=== PATIENT | female | born 1930 | race Caucasian/White ===

== ENCOUNTER → 2016-11-22 | Outpatient (CLI) | payer MEDICARE, OTHER ==
[2016-11-22 08:11] LABS: ALT 31 U/L (9-52); AST 34 U/L (14-36); Cholesterol 184 mg/dL (<200); HDL Cholesterol 62 mg/dL (40-60); Triglycerides 299 mg/dL (<150)
== END ==
LOC: LABWHC1 07:28
PROVIDERS: ATTEND Internal Medicine Cardiovascular Disease
DX: E78.5 Hyperlipidemia, unspecified (principal)
CPT/HCPCS: 36415; 80061; 84450; 84460

== ENCOUNTER → 2017-02-14 | Outpatient (CLI) | payer MEDICARE ==
--- NOTE | 2017-02-14 12:55 | CT ---
EXAMINATION TYPE: CT brain wo con DATE OF EXAM: 02/14/2017 COMPARISON: 08/18/2014 INDICATION: Vertigo DLP: 1017.9 mGycm, Automated exposure control for dose reduction was used. CONTRAST: None CT of the brain is performed utilizing 3 mm thick sections through the posterior fossa and 3 mm thick sections through the remaining calvarium. Study is performed within 24 hours of arrival to the hosp ital. No abnormal hyperdensity is present to suggest an acute intracranial hemorrhage. No mass lesion is evident. No acute infarcts are evident. There is periventricular white matter hypodensity, most likely on the basis of chronic white matter ischemic changes. Ventricles and sulci are mildly prominent for the patient age. There is some mucosal thickening or retention cyst within the left maxillary sinus. A partial septati on may be within the right maxillary sinus. Mucosal thickening is within the mid right ethmoid air ce ll. Main paranasal sinuses and mastoid air cells are clear. IMPRESSIONS: 1. Atrophy with periventricular white matter ischemic type changes.
== END | disposition home or self-care (01) ==
LOC: RADCTMAIN 12:15
PROVIDERS: ATTEND Family Medicine
DX: G31.9 Degenerative disease of nervous system, unspecified (principal); I67.82 Cerebral ischemia; R90.82 White matter disease, unspecified
CPT/HCPCS: 70450

== ENCOUNTER 2017-08-24 04:24 | Emergency (ER) | payer MEDICARE ==
[2017-08-24] MEDS ORDERED: ONDANSETRON 4 MG/2 ML VIAL IVP STA (04:45)
[2017-08-24] MEDS ORDERED: SODIUM CHLORIDE 0.9% 1,000 ML IV STA (04:45)
[2017-08-24] MEDS ORDERED: diphenhydrAMINE 50 MG/ML 1 ML VIAL IVP STA (04:45)
[2017-08-24] MEDS ORDERED: DIAZEPAM 5 MG/ML 2 ML INJ IVP STA (04:45)
[2017-08-24 04:58] LABS: Basophils % (A) 0 %; CH 30.2; CHCM 33.9; Eosinophils # (A) 0.2 k/uL (0-0.7); Eosinophils % (A) 2 %; HCT 42.3 % (34.0-46.0); HDW 2.46; HGB 14.3 gm/dL (11.4-16.0); Luc # (Auto) 0.08; Luc % (Auto) 1; Lymphocytes # (A) 1.3 k/uL (1.0-4.8); Lymphocytes % (A) 19 %; MCH 30.4 pg (25.0-35.0); MCHC 33.9 g/dL (31.0-37.0); MCV 89.7 fL (80.0-100.0); Mean Platelet Volume 8.2; Monocytes # (A) 0.3 k/uL (0-1.0); Monocytes % (A) 4 %; Neutrophils # (A) 4.9 k/uL (1.3-7.7); Neutrophils % (A) 73 %; RBC 4.71 m/uL (3.80-5.40); RDW 14.2 % (11.5-15.5); WBC 6.8 k/uL (3.8-10.6)
[2017-08-24 05:05] LABS: Glucose,Whole Blood 129 mg/dL (75-99)
[2017-08-24 05:06] LABS: Partial Thromboplastin Time 22.5 sec (22.0-30.0); Prothrombin Time 10.1 sec (9.0-12.0)
--- NOTE | 2017-08-24 05:07 | ED ---
Dizziness HPI - General Chief Complaint: Dizziness Stated Complaint: dizziness Time Seen by Provider: 08/24/17 04:38 Source: patient, family Mode of arrival: wheelchair Limitations: no limitations - History of Present Illness Initial Comments: 86 female the ER today for evaluation of what she describes as vertigo. Patient has history of vertigo and states that it feels exact same. The room was spinning around she is very nauseous and feels very weak. Patient denies chest pain or shortness of breath no headache. Patient has not tried to ambulate, the patient states the precision that she isn't makes it worse and currently she is without the dizziness, patient scrubbed the dizziness as the room is spinning MD Complaint: dizziness, other (vertigo) -: days(s) Timing: awoke with symptoms, now resolved Description: "room spinning", off-balance, difficulty walking History of Same: Yes History of Trauma: No Severity: mild Improves With: remaining still Worsens With: movement, position Associated Symptoms: other (nausea and vomiting) - Related Data Home Medications Medication Instructions Recorded Confirmed Aspirin 81 mg PO DAILY 08/18/14 08/18/14 Atorvastatin [Lipitor] 20 mg PO HS 08/18/14 08/18/14 Esomeprazole Magnesium [NexIUM] 40 mg PO DAILY 08/18/14 08/18/14 Hydrochlorothiazide [Hydrodiuril] 25 mg PO DAILY 08/18/14 08/18/14 Oxybutynin Chloride [Ditropan] 5 mg PO DAILY 08/18/14 08/18/14 Allergies Allergy/AdvReac Type Severity Reaction Status Date / Time No Known Allergies Allergy Verified 08/24/17 04:32 Review of Systems ROS Statement: Those systems with pertinent positive or pertinent negative responses have been documented in the HPI. ROS Other: All systems not noted in ROS Statement are negative. Past Medical History Past Medical History: Heart Failure, Hyperlipidemia, Hypertension, Syncope Additional Past Medical History / Comment(s): overactive bladder History of Any Multi-Drug Resistant Organisms: None Reported Past Surgical History: Appendectomy, Bowel Resection, Section, Orthopedic Surgery, Tonsillectomy Past Psychological History: Depression Smoking Status: Never smoker Past Alcohol Use History: Rare Past Drug Use History: None Reported General Exam Limitations: no limitations General appearance: alert, in no apparent distress Head exam: Present: atraumatic, normocephalic, normal inspection Eye exam: Present: normal appearance, PERRL, EOMI. Absent: scleral icterus, conjunctival injection, nystagmus, periorbital swelling ENT exam: Present: normal exam, mucous membranes moist Neck exam: Present: normal inspection. Absent: tenderness, meningismus, lymphadenopathy Respiratory exam: Present: normal lung sounds bilaterally. Absent: respiratory distress, wheezes, rales, rhonchi, stridor Cardiovascular Exam: Present: regular rate, normal rhythm, normal heart sounds. Absent: systolic murmur, diastolic murmur, rubs, gallop, clicks GI/Abdominal exam: Present: soft, normal bowel sounds. Absent: distended, tenderness, guarding, rebound, rigid Extremities exam: Present: normal inspection, full ROM, normal capillary refill. Absent: tenderness, pedal edema, joint swelling, calf tenderness Back exam: Present: normal inspection Neurological exam: Present: alert, oriented X3, CN II-XII intact Psychiatric exam: Present: normal affect, normal mood Skin exam: Present: warm, dry, intact, normal color. Absent: rash Course Vital Signs 08/24/17 04:29 Temperature 97.8 F Pulse Rate 78 Respiratory 18 Rate Blood Pressure 149/77 O2 Sat by Pulse 100 Oximetry - Reevaluation(s) Reevaluation #1: 08/24/17 05:06 Patient currently feels improved, no active vomiting. Reevaluation #2: 08/24/17 05:06 Patient is able to ambulate without ataxia EKG Findings - EKG Comments: EKG Findings:: EKG shows no sinus rhythm rate of 60, AL 166, QRS 80, QTC 457 Medical Decision Making - Medical Decision Making 86 female DEL with vertigo, vertiginous symptoms. Vitals are resolved at this time. CT labwork is normal, EKG negative patient can be discharged - Lab Data Result diagrams: 08/24/17 04:50 Lab Results 08/24/17 Range/Units 04:50 WBC 6.8 (3.8-10.6) k/uL RBC 4.71 (3.80-5.40) m/uL Hgb 14.3 (11.4-16.0) gm/dL Hct 42.3 (34.0-46.0) % MCV 89.7 (80.0-100.0) fL MCH 30.4 (25.0-35.0) pg MCHC 33.9 (31.0-37.0) g/dL RDW 14.2 (11.5-15.5) % Plt Count 218 (150-450) k/uL Neutrophils % 73 % Lymphocytes % 19 % Monocytes % 4 % Eosinophils % 2 % Basophils % 0 % Neutrophils # 4.9 (1.3-7.7) k/uL Lymphocytes # 1.3 (1.0-4.8) k/uL Monocytes # 0.3 (0-1.0) k/uL Eosinophils # 0.2 (0-0.7) k/uL Basophils # 0.0 (0-0.2) k/uL - Radiology Data Radiology results: report reviewed (CT brain negative), image reviewed Disposition Clinical Impression: Benign paroxysmal positional vertigo Disposition: HOME SELF-CARE Condition: Good Instructions: Vertigo (ED) Referrals: Jose R William DO [Primary Care Provider] - 1-2 days
[2017-08-24 05:08] LABS: ALT 36 U/L (9-52); AST 30 U/L (14-36); Alkaline Phosphatase 99 U/L (38-126); Anion Gap 12 mmol/L; Blood Urea Nitrogen 15 mg/dL (7-17); Calcium 9.8 mg/dL (8.4-10.2); Carbon Dioxide 24 mmol/L (22-30); Chloride 106 mmol/L (98-107); Glucose 135 mg/dL (74-99); Magnesium 1.8 mg/dL (1.6-2.3); Non-African American GFR(MDRD) 53 (>60 ml/min/1.73 sqM); Phosphorus 1.9 mg/dL (2.5-4.5); Potassium 3.8 mmol/L (3.5-5.1); Sodium 142 mmol/L (137-145); Total Bilirubin 0.4 mg/dL (0.2-1.3); Total Protein 7.1 g/dL (6.3-8.2)
[2017-08-24 05:58] LABS: Creatine Kinase 50 U/L (30-135)
[2017-08-24 06:11] LABS: Creatine Kinase MB 0.9 ng/mL (0.0-2.4); Troponin I <0.012 ng/mL (0.000-0.034)
[2017-08-24 06:35] VITALS: BP 143/63; PULSE 65; RESP 16; TEMP 97.9
--- NOTE | 2017-08-24 06:56 | CT ---
EXAM: CT Head Without Intravenous Contrast CLINICAL HISTORY: Reason: Pain TECHNIQUE: Axial computed tomography images of the head/brain without intravenous contrast. Coronal and sagittal reformats were obtained. CTDI is 57.40 mGy and DLP is 961 mGy-cm. This CT exam was performed using one or more of the following dose reduction techniques: automated exposure control, adjustment of the mA and/or kV according to patient size, and/or use of iterative reconstruction technique. COMPARISON: CT head, 02/14/17 FINDINGS: Brain: No intracranial hemorrhage, mass effect, or midline shift. Sulcal and ventricular prominence is consistent with age-related parenchymal volume loss. Periventricular white matter hypodensities, likely chronic small vessel disease. Ventricles: Unremarkable. No ventriculomegaly. Bones/joints: No acute fracture. Sinuses: Maxillary sinus mucosal thickening, left greater than right. Left basilar sinus mucous retention cyst versus polyp. No air-fluid levels. Mastoid air cells: Unremarkable as visualized. No mastoid effusion. IMPRESSION: 1. No acute intracranial abnormality. 2. Global volume loss and white matter changes most compatible with chronic small vessel disease. 3. Mild maxillary sinus disease.
[2017-08-24 07:15] LABS: Appearance,Urine Clear (Clear); Bilirubin,Urine Negative (Negative); Glucose,Urine (UA) Negative (Negative); Ketones,Urine Negative (Negative); Leukocyte Esterase,Urine Negative (Negative); Nitrite,Urine Negative (Negative); PH, Urine 7.5 (5.0-8.0); Protein,Urine Negative (Negative); Specific Gravity,Urine 1.006 (1.001-1.035); UA Billing (MACRO vs. MICRO) CHEM; Urobilinogen,Urine <2.0 mg/dL (<2.0)
== END 2017-08-24 07:15 | disposition home or self-care (01) ==
LOC: EC 04:24
DX: H81.10 Benign paroxysmal vertigo, unspecified ear (principal); E78.5 Hyperlipidemia, unspecified; I11.0 Hypertensive heart disease with heart failure; I50.9 Heart failure, unspecified; N32.81 Overactive bladder; Z79.82 Long term (current) use of aspirin; Z79.899 Other long term (current) drug therapy
CPT/HCPCS: 36415; 70450; 80053; 81003; 82550; 82553; 83735; 84100; 84484; 85025; 85610; 85730; 87086; 93005; 96361; 96374; 96375; 99284

== ENCOUNTER → 2017-12-31 | Outpatient (CLI) | payer MEDICARE ==
[2017-12-31 09:18] LABS: ALT 32 U/L (9-52); AST 32 U/L (14-36); Cholesterol 199 mg/dL (<200); HDL Cholesterol 66 mg/dL (40-60); LDL Cholesterol,Calculated 82 mg/dL (0-99); Triglycerides 255 mg/dL (<150)
== END | disposition home or self-care (01) ==
LOC: LABWHC1 08:31
PROVIDERS: ATTEND Internal Medicine Cardiovascular Disease
DX: E78.5 Hyperlipidemia, unspecified (principal)
CPT/HCPCS: 36415; 80061; 84450; 84460

== ENCOUNTER → 2018-06-17 | Outpatient (CLI) | payer MEDICARE ==
--- NOTE | 2018-06-17 18:05 | NM ---
EXAMINATION TYPE: NM bone scan whole body DATE OF EXAM: 06/17/2018 COMPARISON: Correlation CT brain 08/24/2017 HISTORY: 87-year-old female with abnormal bone marrow findings Technique: Delayed whole-body scanning was performed following the injection of 24.8 mCi Tc 99m MDP. Images acquired 3 hours post injection. FINDINGS: There are multiple small foci of increased tracer activity within the calvarium. Degenerative tracer activity is noted at both shoulders and sternoclavicular joints. Intense degenerative tracer activity at the base of the thumbs and also within the knees and both hindfoot/midfoot regions. 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 Intense abnormal increased activ ity is present along the sides of concavity such as along the right mid lumbar spine, left lumbosacra l junction, and left lower thoracic spine. Areas of increased uptake relating to costal chondral calc ifications along the lower hemithorax. IMPRESSION: 1. Extensive degenerative tracer activity particularly associated with a degenerated levoconvex scoli osis. 2. Small foci of increased activity within the calvarium may be normal variation in this elderly fema le. The possibility of metastatic disease, however, is difficult to entirely exclude at this time. Co nsider follow-up brain CT to assess for any interval change from the patient's 08/24/2017 CT.
== END ==
LOC: RADNMMAIN 10:19
PROVIDERS: ATTEND Family Medicine
DX: R93.7 Abnormal findings on diagnostic imaging of other parts of musculoskeletal system (principal)
CPT/HCPCS: 78306; A9503

== ENCOUNTER → 2018-10-22 | Outpatient (CLI) | payer MEDICARE ==
--- NOTE | 2018-10-22 09:10 | XR ---
EXAMINATION TYPE: XR Hip Bilateral Complete DATE OF EXAM: 10/22/2018 CLINICAL HISTORY: Right hip pain and left hip pain. TECHNIQUE: AP and frogleg views of the bilateral hips were obtained. COMPARISON: None. FINDINGS: There is no acute fracture or dislocation of either hip. Mild femoral acetabular arthropath y is seen as acetabular roof sclerosis and small marginal osteophytes. No suspicious osseous lesion. Osseous mineralization is within normal limits. IMPRESSION: There is no acute fracture or dislocation in either hip. Mild femoral acetabular arthrop athy bilaterally.
== END ==
LOC: RADXRMAIN 08:44
PROVIDERS: ATTEND Family Medicine
DX: M16.0 Bilateral primary osteoarthritis of hip (principal)
CPT/HCPCS: 73521

== ENCOUNTER 2021-06-18 19:33 | Emergency (ER) | payer MEDICARE ==
[2021-06-18 19:46] VITALS: RESP 18; TEMP 97.3
--- NOTE | 2021-06-18 19:50 | ED ---
General Adult HPI - General Chief complaint: Weakness Stated complaint: Weakness Time Seen by Provider: 06/18/21 19:46 Source: patient, family, EMS Mode of arrival: EMS Limitations: no limitations - History of Present Illness Initial comments: Patient presents to the ED by ambulance for evaluation with her daughter at bedside. Patient states that she has been constipated for the past couple of days, so she decided to take some laxatives yesterday and today. Patient states that she was able to have a bowel movement earlier today. Patient states that about 4 hours ago, she developed shakiness. Patient's daughter states that the patient called her, and when she arrived, the patient was very "worked up". Patient and daughter both deny syncope or LOC. Patient states that she is feeling better now. Patient admits to feeling generally weak for the past few hours as well. Patient denies having any pain, trauma/injury/fall, fever, headache, focal numbness/weakness/neuro deficit, chest pain or pressure, dyspnea, cough or cold symptoms, palpitations, abdominal pain, nausea or vomiting, diarrhea, bloody or melanotic stool, dysuria or urinary symptoms, or any other symptoms or complaints. Patient states that she is fully vaccinated for Covid. - Related Data Home Medications Medication Instructions Recorded Confirmed Aspirin 81 mg PO DAILY 08/18/14 08/24/17 Atorvastatin [Lipitor] 20 mg PO HS 08/18/14 08/24/17 Metoprolol Tartrate 25 mg PO DAILY 08/24/17 08/24/17 Multivitamins, Thera [Multivitamin 1 tab PO DAILY 08/24/17 08/24/17 (formulary)] Vit A/Vit C/Vit E/Zinc/Copper 1 cap PO DAILY 08/24/17 08/24/17 [ICAPS SOFTGEL] amLODIPine [Norvasc] 10 mg PO DAILY 08/24/17 08/24/17 Previous Rx's Medication Instructions Recorded Meclizine [Antivert] 25 mg PO TID #15 tab 08/24/17 Ondansetron Odt [Zofran ODT] 4 mg PO Q8HR PRN #30 tab 08/24/17 Allergies Allergy/AdvReac Type Severity Reaction Status Date / Time No Known Allergies Allergy Verified 08/24/17 07:08 Review of Systems ROS Statement: Those systems with pertinent positive or pertinent negative responses have been documented in the HPI. ROS Other: All systems not noted in ROS Statement are negative. Past Medical History Past Medical History: Heart Failure, Hyperlipidemia, Hypertension, Syncope Additional Past Medical History / Comment(s): overactive bladder History of Any Multi-Drug Resistant Organisms: None Reported Past Surgical History: Appendectomy, Bowel Resection, Section, Orthopedic Surgery, Tonsillectomy Past Psychological History: Depression Smoking Status: Former smoker Past Alcohol Use History: Rare Past Drug Use History: None Reported General Exam Limitations: no limitations General appearance: alert, in no apparent distress Head exam: Present: atraumatic, normocephalic Eye exam: Present: normal appearance, PERRL, EOMI ENT exam: Present: mucous membranes moist Neck exam: Present: other (Trachea is in midline) Respiratory exam: Present: normal lung sounds bilaterally. Absent: respiratory distress, wheezes, rales, rhonchi, stridor Cardiovascular Exam: Present: regular rate, normal rhythm, normal heart sounds, other (Normal radial pulses bilaterally) GI/Abdominal exam: Present: soft, hyperactive bowel sounds. Absent: distended, tenderness, guarding Extremities exam: Absent: tenderness, pedal edema, calf tenderness Neurological exam: Present: alert, oriented X3, CN II-XII intact. Absent: motor sensory deficit Psychiatric exam: Present: normal affect, normal mood Skin exam: Present: warm, dry, intact, normal color Course Vital Signs 06/18/21 06/18/21 19:35 19:46 Temperature 97.3 F L Pulse Rate 102 H 102 H Respiratory 18 18 Rate Blood Pressure 152/127 160/76 O2 Sat by Pulse 98 98 Oximetry - Reevaluation(s) Reevaluation #1: 06/18/21 21:10 Patient states that she is no longer weak or shaky, and she states that she feels much better and back to normal now. Patient denies development of any new symptoms while in the ED. Patient remains alert and breathing comfortably with a normal room air oxygen saturation. Patient feels comfortable and wishes to go home at this time. I do not see any indication for required hospital admission at this time. Will discharge patient home with her daughter at this time. Patient was counseled about weakness/shakiness, and she was clearly explained return and follow-up instructions. Patient was instructed to have a low thres hold for return to the emergency department should her symptoms return or worsen. Patient was also instructed to follow up closely with her primary care provider. Patient feels comfortable with this plan. EKG Findings - EKG Comments: EKG Findings:: Normal sinus rhythm, ventricular rate of 98 bpm, no ectopy, normal [place] and QRS intervals, normal QT interval, normal axis, no ST or T-wave abnormality Medical Decision Making - Medical Decision Making Patient's EKG, chest x-ray and labs are all fairly unremarkable. Patient is afebrile and normotensive. I do not suspect an infectious etiology. I do not suspect an emergent medical condition at this time. Will discharge patient home with her daughter at this time with instructions for close outpatient follow-up with her primary care provider. - Lab Data Result diagrams: 06/18/21 20:18 06/18/21 20:18 Lab Results 06/18/21 06/18/21 06/18/21 Range/Units 20:18 20:18 20:18 WBC 11.5 H (3.8-10.6) k/uL RBC 4.25 (3.80-5.40) m/uL Hgb 13.7 (11.4-16.0) gm/dL Hct 39.3 (34.0-46.0) % MCV 92.4 (80.0-100.0) fL MCH 32.1 (25.0-35.0) pg MCHC 34.8 (31.0-37.0) g/dL RDW 12.5 (11.5-15.5) % Plt Count 187 (150-450) k/uL MPV 8.5 Neutrophils % 84 % Lymphocytes % 10 % Monocytes % 4 % Eosinophils % 0 % Basophils % 0 % Neutrophils # 9.7 H (1.3-7.7) k/uL Lymphocytes # 1.1 (1.0-4.8) k/uL Monocytes # 0.5 (0-1.0) k/uL Eosinophils # 0.1 (0-0.7) k/uL Basophils # 0.0 (0-0.2) k/uL PT 13.7 H (9.0-12.0) sec INR 1.3 H (<1.2) APTT 27.1 (22.0-30.0) sec Sodium (137-145) mmol/L Potassium (3.5-5.1) mmol/L Chloride (98-107) mmol/L Carbon Dioxide (22-30) mmol/L Anion Gap mmol/L BUN (7-17) mg/dL Creatinine (0.52-1.04) mg/dL Est GFR (CKD-EPI)AfAm (>60 ml/min/1.73 sqM) Est GFR (CKD-EPI)NonAf (>60 ml/min/1.73 sqM) Glucose (74-99) mg/dL Calcium (8.4-10.2) mg/dL Magnesium (1.6-2.3) mg/dL Total Bilirubin (0.2-1.3) mg/dL AST (14-36) U/L ALT (4-34) U/L Alkaline Phosphatase (38-126) U/L Troponin I (0.000-0.034) ng/mL Total Protein (6.3-8.2) g/dL Albumin (3.5-5.0) g/dL Urine Color Colorless Urine Appearance Clear (Clear) Urine pH 7.5 (5.0-8.0) Ur Specific [place] 1.005 (1.001-1.035) Urine Protein Negative (Negative) Urine Glucose (UA) Negative (Negative) Urine Ketones Trace H (Negative) Urine Blood Negative (Negative) Urine Nitrite Negative (Negative) Urine Bilirubin Negative (Negative) Urine Urobilinogen <2.0 (<2.0) mg/dL Ur Leukocyte Esterase Negative (Negative) 06/18/21 06/18/21 Range/Units 20:18 20:18 WBC (3.8-10.6) k/uL RBC (3.80-5.40) m/uL Hgb (11.4-16.0) gm/dL Hct (34.0-46.0) % MCV (80.0-100.0) fL MCH (25.0-35.0) pg MCHC (31.0-37.0) g/dL RDW (11.5-15.5) % Plt Count (150-450) k/uL MPV Neutrophils % % Lymphocytes % % Monocytes % % Eosinophils % % Basophils % % Neutrophils # (1.3-7.7) k/uL Lymphocytes # (1.0-4.8) k/uL Monocytes # (0-1.0) k/uL Eosinophils # (0-0.7) k/uL Basophils # (0-0.2) k/uL PT (9.0-12.0) sec INR (<1.2) APTT (22.0-30.0) sec Sodium 132 L (137-145) mmol/L Potassium 3.9 (3.5-5.1) mmol/L Chloride 102 (98-107) mmol/L Carbon Dioxide 20 L (22-30) mmol/L Anion Gap 10 mmol/L BUN 20 H (7-17) mg/dL Creatinine 1.07 H (0.52-1.04) mg/dL Est GFR (CKD-EPI)AfAm 54 (>60 ml/min/1.73 sqM) Est GFR (CKD-EPI)NonAf 47 (>60 ml/min/1.73 sqM) Glucose 107 H (74-99) mg/dL Calcium 9.1 (8.4-10.2) mg/dL Magnesium 1.5 L (1.6-2.3) mg/dL Total Bilirubin 0.5 (0.2-1.3) mg/dL AST 36 (14-36) U/L ALT 21 (4-34) U/L Alkaline Phosphatase 104 (38-126) U/L Troponin I <0.012 (0.000-0.034) ng/mL Total Protein 6.7 (6.3-8.2) g/dL Albumin 3.9 (3.5-5.0) g/dL Urine Color Urine Appearance (Clear) Urine pH (5.0-8.0) Ur Specific [place] (1.001-1.035) Urine Protein (Negative) Urine Glucose (UA) (Negative) Urine Ketones (Negative) Urine Blood (Negative) Urine Nitrite (Negative) Urine Bilirubin (Negative) Urine Urobilinogen (<2.0) mg/dL Ur Leukocyte Esterase (Negative) - Radiology Data Radiology results: report reviewed (Chest x-ray: Large hiatal hernia. No pulmonary consolidation or heart failure.) Disposition Clinical Impression: Shakiness, Generalized weakness Disposition: HOME SELF-CARE Condition: Stable Instructions (If sedation given, give patient instructions): Weakness (ED) Additional Instructions: Return to the ER immediately should you develop increased weakness, a fever, any significant pain, feeling dizzy or faint, shortness of breath, vomiting, or new or worsening symptoms. Follow up closely with your primary care provider. Is patient prescribed a controlled substance at d/c from ED?: No Referrals: Jose R William DO [Primary Care Provider] - 1-2 days Time of Disposition: 21:15
[2021-06-18 20:26] LABS: Basophils % (A) 0 %; Eosinophils # (A) 0.1 k/uL (0-0.7); Eosinophils % (A) 0 %; HCT 39.3 % (34.0-46.0); HGB 13.7 gm/dL (11.4-16.0); Lymphocytes # (A) 1.1 k/uL (1.0-4.8); Lymphocytes % (A) 10 %; MCH 32.1 pg (25.0-35.0); MCHC 34.8 g/dL (31.0-37.0); MCV 92.4 fL (80.0-100.0); Mean Platelet Volume 8.5; Monocytes # (A) 0.5 k/uL (0-1.0); Monocytes % (A) 4 %; Neutrophils # (A) 9.7 k/uL (1.3-7.7); Neutrophils % (A) 84 %; Platelet Count 187 k/uL (150-450); RBC 4.25 m/uL (3.80-5.40); RDW 12.5 % (11.5-15.5); WBC 11.5 k/uL (3.8-10.6)
--- NOTE | 2021-06-18 20:35 | XR ---
EXAMINATION TYPE: XR chest 1V portable DATE OF EXAM: 06/18/2021 COMPARISON: NONE HISTORY: Weakness TECHNIQUE: Single view FINDINGS: Heart is normal. There is large hiatal hernia. There is no heart failure. There is coarseni ng of the interstitial markings. There are chest leads. IMPRESSION: Large hiatal hernia. No pulmonary consolidation or heart failure.
[2021-06-18 20:36] LABS: INR 1.3 (<1.2); Partial Thromboplastin Time 27.1 sec (22.0-30.0); Prothrombin Time 13.7 sec (9.0-12.0)
[2021-06-18 20:38] LABS: Albumin 3.9 g/dL (3.5-5.0); Appearance,Urine Clear (Clear); Bilirubin,Urine Negative (Negative); Blood,Urine Negative (Negative); Calcium 9.1 mg/dL (8.4-10.2); Color,Urine Colorless; Glucose,Urine (UA) Negative (Negative); Ketones,Urine Trace (Negative); Leukocyte Esterase,Urine Negative (Negative); Magnesium 1.5 mg/dL (1.6-2.3); Nitrite,Urine Negative (Negative); PH, Urine 7.5 (5.0-8.0); Potassium 3.9 mmol/L (3.5-5.1); Protein,Urine Negative (Negative); Specific Gravity,Urine 1.005 (1.001-1.035); Total Bilirubin 0.5 mg/dL (0.2-1.3); Total Protein 6.7 g/dL (6.3-8.2); Urobilinogen,Urine <2.0 mg/dL (<2.0)
[2021-06-18 21:59] VITALS: BP 128/67; PULSE 86
== END 2021-06-18 21:31 | disposition home or self-care (01) ==
LOC: EC 19:33
DX: R53.1 Weakness (principal); R25.1 Tremor, unspecified; I11.0 Hypertensive heart disease with heart failure; I50.9 Heart failure, unspecified; E78.5 Hyperlipidemia, unspecified; Z87.891 Personal history of nicotine dependence; Z79.82 Long term (current) use of aspirin; Z90.49 Acquired absence of other specified parts of digestive tract; F32.9 Major depressive disorder, single episode, unspecified
CPT/HCPCS: 36415; 71045; 80053; 81003; 83735; 84484; 85025; 85610; 85730; 93005; 99285

== ENCOUNTER → 2022-08-07 | Outpatient (CLI) | payer MEDICARE ==
--- NOTE | 2022-08-07 13:11 | XR ---
EXAMINATION TYPE: XR abdomen 1V DATE OF EXAM: 08/07/2022 COMPARISON: NONE HISTORY: Pain TECHNIQUE: Single supine KUB image of the abdomen is obtained FINDINGS: Small bowel demonstrates no evidence for dilatation or air fluid levels. Gas and fecal material is seen in non-distended colon. No convincing evidence for pneumoperitoneum. No unusual calcifications. The lung bases are clear. The osseous structures are intact. IMPRESSION: 1. Overall nonobstructive bowel gas pattern.
== END | disposition home or self-care (01) ==
LOC: RADXRMAIN 12:49
PROVIDERS: ATTEND Family Medicine
DX: R10.0 Acute abdomen (principal)
CPT/HCPCS: 74018

== ENCOUNTER 2022-10-03 03:21 | Inpatient (IN) | payer MEDICARE ==
[2022-10-03] MEDS ORDERED: SODIUM CHLORIDE 0.9% 500 ML 500 ML IV STA (03:23)
[2022-10-03] MEDS ORDERED: SODIUM CHLORIDE 0.9% 1,000 ML IV STA (03:23)
[2022-10-03] MEDS ORDERED: ONDANSETRON 4 MG/2 ML VIAL IVP STA (03:23)
--- NOTE | 2022-10-03 03:24 | ED ---
Weakness HPI - General Stated complaint: GI Bleed Time Seen by Provider: 10/03/22 03:23 Source: RN notes reviewed, old records reviewed, Caregiver Mode of arrival: EMS Limitations: altered mental status, physical limitation - History of Present Illness Initial comments: This is a 89-year-old female who is a poor story, patient is currently moaning and groaning not feeling well. He is brought in by family members for recent symptoms and they believe they found her passed out on the toilet this morning. Patient has had darker stools per family. No blood thinners and no other complaints MD Complaint: generalized weakness, lack of energy, difficulty walking -: unknown Quality: constant Improves with: none Worsens with: none Context: history of similar Associated Symptoms: confusion, dark stools, loss of appetite, nausea/vomiting - Related Data Home Medications Medication Instructions Recorded Confirmed Aspirin 81 mg PO DAILY 08/18/14 08/24/17 Atorvastatin [Lipitor] 20 mg PO HS 08/18/14 08/24/17 Metoprolol Tartrate 25 mg PO DAILY 08/24/17 08/24/17 Multivitamins, Thera [Multivitamin 1 tab PO DAILY 08/24/17 08/24/17 (formulary)] Vit A/Vit C/Vit E/Zinc/Copper 1 cap PO DAILY 08/24/17 08/24/17 [ICAPS SOFTGEL] amLODIPine [Norvasc] 10 mg PO DAILY 08/24/17 08/24/17 Previous Rx's Medication Instructions Recorded Meclizine [Antivert] 25 mg PO TID #15 tab 08/24/17 Ondansetron Odt [Zofran ODT] 4 mg PO Q8HR PRN #30 tab 08/24/17 Allergies Allergy/AdvReac Type Severity Reaction Status Date / Time No Known Allergies Allergy Verified 08/24/17 07:08 Review of Systems ROS Statement: Those systems with pertinent positive or pertinent negative responses have been documented in the HPI. ROS Other: All systems not noted in ROS Statement are negative. Past Medical History Past Medical History: Heart Failure, Hyperlipidemia, Hypertension, Syncope Additional Past Medical History / Comment(s): overactive bladder History of Any Multi-Drug Resistant Organisms: None Reported Past Surgical History: Appendectomy, Bowel Resection, Section, Orthopedic Surgery, Tonsillectomy Past Psychological History: Depression Smoking Status: Former smoker Past Alcohol Use History: Rare Past Drug Use History: None Reported General Exam General appearance: alert, in no apparent distress Head exam: Present: atraumatic, normocephalic, normal inspection Eye exam: Present: normal appearance, PERRL, EOMI. Absent: scleral icterus, conjunctival injection, periorbital swelling ENT exam: Present: normal exam, mucous membranes moist Neck exam: Present: normal inspection. Absent: tenderness, meningismus, lymphadenopathy Respiratory exam: Present: normal lung sounds bilaterally. Absent: respiratory distress, wheezes, rales, rhonchi, stridor Cardiovascular Exam: Present: regular rate, normal rhythm, normal heart sounds. Absent: systolic murmur, diastolic murmur, rubs, gallop, clicks GI/Abdominal exam: Present: soft, normal bowel sounds. Absent: distended, tenderness, guarding, rebound, rigid Extremities exam: Present: normal inspection, full ROM, normal capillary refill. Absent: tenderness, pedal edema, joint swelling, calf tenderness Back exam: Present: normal inspection Neurological exam: Present: alert, oriented X3, CN II-XII intact Psychiatric exam: Present: normal affect, normal mood Skin exam: Present: warm, dry, intact, normal color. Absent: rash Course Vital Signs 10/03/22 10/03/22 10/03/22 03:23 04:00 05:00 Temperature 98 F Pulse Rate 82 79 75 Respiratory 16 16 16 Rate Blood Pressure 130/64 128/58 116/45 O2 Sat by Pulse 98 95 97 Oximetry - Reevaluation(s) Reevaluation #1: 10/03/22 05:48 Medical record is reviewed Reevaluation #2: 10/03/22 05:48 Patient has no change here in the ER Reevaluation #3: 10/03/22 05:48 Patient informed results questions answered Reevaluation #4: 10/03/22 05:48 Differential Weakness: Hypoglycemia, shock, sepsis, hyponatremia, anemia, infection, VA, ETOH, adverse medicine reaction, overdose, stroke, this is not meant to be an all-inclusive list. Reevaluation #5: 10/03/22 05:48 Was pt. sent in by a medical professional or institution? @ -no Did you speak to anyone other than the patient for history? @ -family Did you review nursing and triage notes? @ -agree Were old charts reviewed? @ -no Differential Diagnosis? @ -prior EKG interpreted by me (3pts min.)? @ -[none] X-rays interpreted by me (1pt min.)? @ -[none] CT interpreted by me (1pt min.)? @ -[none] U/S interpreted by me (1pt. min.)? @ -[none] What testing was considered but not performed? (CT, X-rays, U/S, labs)? Why? @ no What meds were considered but not given? Why? @ -[none] Did you discuss the management of the patient with other professionals? @ -no Did you reconcile home meds? @ -[none] Was smoking cessation discussed for >3mins.? @ -[none] Was critical care preformed (if so, how long)? @ -yes Were there social determinants of health that impacted care today? How? (Homelessness, low income, unemployed, alcoholism, drug addiction, transportation, low edu. Level, literacy, decrease access to med. care, [facility], rehab)? @ -no Was there de-escalation of care discussed even if they declined? (Discuss DNR or withdrawal of care, Hospice)? @ -no What co-morbidities impacted this encounter? (DM, HTN, Smoking, COPD, CAD, Cancer, CVA, Hep., AIDS, mental health diagnosis, sleep apnea, morbid obesity)? @ -no Was patient admitted / discharged? @ -admit Undiagnosed new problem with uncertain prognosis? @ -[none] Drug Therapy requiring intensive monitoring for toxicity (Heparin, Nitro, Insulin, Cardizem)? @ -[none] Were any procedures done? @ -[none] Diagnosis/symptom? @ -[default] Acute, or Chronic, or Acute on Chronic? @ -[default] Uncomplicated (without systemic symptoms) or Complicated (systemic symptoms)? @ -[default] Side effects of treatment? @ -[none] Exacerbation, Progression, or Severe Exacerbation] @ -[no] Poses a threat to life or bodily function? @ -yes - Consultations Consultation #1: Spoke with admitting physicians who agree to admit this patient, JORGE A EKG Findings - EKG Comments: EKG Findings:: EKG sinus 89 MT 14 QRS 84 QTc 420 Medical Decision Making - Medical Decision Making 89 female will be admitted for likely GI bleed significantly low hemoglobin, slo w GI bleed. No signs are normal have been stable. Patient will be transfused and admitted for GI evaluation - Lab Data Result diagrams: 10/03/22 03:32 10/03/22 03:32 Lab Results 10/03/22 10/03/22 10/03/22 Range/Units 03:22 03:32 03:32 WBC 6.0 (3.8-10.6) k/uL RBC 2.08 L (3.80-5.40) m/uL Hgb 6.5 L* (11.4-16.0) gm/dL Hct 18.9 L* (34.0-46.0) % MCV 90.8 (80.0-100.0) fL MCH 31.0 (25.0-35.0) pg MCHC 34.1 (31.0-37.0) g/dL RDW 13.2 (11.5-15.5) % Plt Count 67 L (150-450) k/uL MPV 9.5 Neutrophils % 69 % Lymphocytes % 25 % Monocytes % 3 % Eosinophils % 1 % Basophils % 0 % Neutrophils # 4.1 (1.3-7.7) k/uL Lymphocytes # 1.5 (1.0-4.8) k/uL Monocytes # 0.2 (0-1.0) k/uL Eosinophils # 0.0 (0-0.7) k/uL Basophils # 0.0 (0-0.2) k/uL Manual Slide Review Performed Polychromasia Present Poikilocytosis (manual Present Sodium 134 L (137-145) mmol/L Potassium 4.1 (3.5-5.1) mmol/L Chloride 110 H (98-107) mmol/L Carbon Dioxide 19 L (22-30) mmol/L Anion Gap 5 mmol/L BUN 52 H (7-17) mg/dL Creatinine 0.98 (0.52-1.04) mg/dL Est GFR (CKD-EPI)AfAm 59 (>60 ml/min/1.73 sqM) Est GFR (CKD-EPI)NonAf 51 (>60 ml/min/1.73 sqM) Glucose 169 H (74-99) mg/dL Plasma Lactic Acid Ehsan (0.7-2.0) mmol/L Calcium 8.2 L (8.4-10.2) mg/dL Phosphorus 3.3 (2.5-4.5) mg/dL Magnesium 1.8 (1.6-2.3) mg/dL Total Bilirubin 0.3 (0.2-1.3) mg/dL AST 25 (14-36) U/L ALT 20 (4-34) U/L Alkaline Phosphatase 53 (38-126) U/L Troponin I (0.000-0.034) ng/mL Total Protein 4.6 L (6.3-8.2) g/dL Albumin 2.7 L (3.5-5.0) g/dL TSH 1.610 (0.465-4.680) mIU/L Blood Type Confirm O Positive Blood Type Recheck Bld Type Recheck Status Spec Expiration Date 10/03/22 10/03/22 10/03/22 Range/Units 03:32 03:32 03:32 WBC (3.8-10.6) k/uL RBC (3.80-5.40) m/uL Hgb (11.4-16.0) gm/dL Hct (34.0-46.0) % MCV (80.0-100.0) fL MCH (25.0-35.0) pg MCHC (31.0-37.0) g/dL RDW (11.5-15.5) % Plt Count (150-450) k/uL MPV Neutrophils % % Lymphocytes % % Monocytes % % Eosinophils % % Basophils % % Neutrophils # (1.3-7.7) k/uL Lymphocytes # (1.0-4.8) k/uL Monocytes # (0-1.0) k/uL Eosinophils # (0-0.7) k/uL Basophils # (0-0.2) k/uL Manual Slide Review Polychromasia Poikilocytosis (manual Sodium (137-145) mmol/L Potassium (3.5-5.1) mmol/L Chloride (98-107) mmol/L Carbon Dioxide (22-30) mmol/L Anion Gap mmol/L BUN (7-17) mg/dL Creatinine (0.52-1.04) mg/dL Est GFR (CKD-EPI)AfAm (>60 ml/min/1.73 sqM) Est GFR (CKD-EPI)NonAf (>60 ml/min/1.73 sqM) Glucose (74-99) mg/dL Plasma Lactic Acid Ehsan 2.2 H* (0.7-2.0) mmol/L Calcium (8.4-10.2) mg/dL Phosphorus (2.5-4.5) mg/dL Magnesium (1.6-2.3) mg/dL Total Bilirubin (0.2-1.3) mg/dL AST (14-36) U/L ALT (4-34) U/L Alkaline Phosphatase (38-126) U/L Troponin I <0.012 (0.000-0.034) ng/mL Total Protein (6.3-8.2) g/dL Albumin (3.5-5.0) g/dL TSH (0.465-4.680) mIU/L Blood Type Confirm Blood Type Recheck No Previous Record Bld Type Recheck Status CABO Indicated Spec Expiration Date 10/06/20222331 Critical Care Time Critical Care Time: Yes Total Critical Care Time: 31 Disposition Clinical Impression: Vasovagal syncope, Fainting spell, Dehydration, Anemia, GIB (gastrointestinal bleeding) Disposition: ADMITTED IP TO THIS [facility] Condition: Fair Is patient prescribed a controlled substance at d/c from ED?: No Referrals: Jose R William DO [Primary Care Provider] - 1-2 days Time of Disposition: 05:50
[2022-10-03 03:55] LABS: Basophils % (A) 0 %; Eosinophils % (A) 1 %; Lymphocytes # (A) 1.5 k/uL (1.0-4.8); Lymphocytes % (A) 25 %; MCHC 34.1 g/dL (31.0-37.0); MCV 90.8 fL (80.0-100.0); Mean Platelet Volume 9.5; Monocytes # (A) 0.2 k/uL (0-1.0); Monocytes % (A) 3 %; Neutrophils # (A) 4.1 k/uL (1.3-7.7); Neutrophils % (A) 69 %; RBC 2.08 m/uL (3.80-5.40); RDW 13.2 % (11.5-15.5)
[2022-10-03] MEDS ORDERED: MORPHINE SULFATE 4 MG/ML SYRINGE IVP STA (03:57)
[2022-10-03 04:00] LABS: HGB 6.5 gm/dL (11.4-16.0)
[2022-10-03 04:01] LABS: HCT 18.9 % (34.0-46.0)
[2022-10-03 04:04] LABS: Albumin 2.7 g/dL (3.5-5.0); Calcium 8.2 mg/dL (8.4-10.2); Magnesium 1.8 mg/dL (1.6-2.3); Phosphorus 3.3 mg/dL (2.5-4.5); Potassium 4.1 mmol/L (3.5-5.1); Total Bilirubin 0.3 mg/dL (0.2-1.3); Total Protein 4.6 g/dL (6.3-8.2)
[2022-10-03 04:22] LABS: Platelet Count 67 k/uL (150-450)
[2022-10-03 04:23] LABS: Poikilocytosis (M) Present; Polychromasia Present
[2022-10-03] MEDS ORDERED: NALOXONE 0.4 MG/ML 1 ML VIAL IV PRN (05:45)
[2022-10-03] MEDS ORDERED: SODIUM CHLORIDE 0.9% 1,000 ML IV SCH (05:45)
[2022-10-03] MEDS ORDERED: MORPHINE SULFATE 4 MG/ML SYRINGE IV PRN (05:45)
[2022-10-03] MEDS ORDERED: ONDANSETRON 4 MG/2 ML VIAL IVP PRN (05:45)
[2022-10-03] MEDS: PANTOPRAZOLE 40 MG/10 ML VIAL IV SCH ×2 (08:30→20:48)
[2022-10-03 10:32] LABS: Appearance,Urine Clear (Clear); Bilirubin,Urine Negative (Negative); Blood,Urine Negative (Negative); Color,Urine Light Yellow; Glucose,Urine (UA) Negative (Negative); Ketones,Urine Negative (Negative); Leukocyte Esterase,Urine Negative (Negative); Nitrite,Urine Negative (Negative); Protein,Urine Negative (Negative); Specific Gravity,Urine 1.015 (1.001-1.035); Urobilinogen,Urine <2.0 mg/dL (<2.0)
--- NOTE | 2022-10-03 12:23 | P.CONS ---
History of Present Illness - Reason for Consult Consult date: 10/03/22 GI bleed Requesting physician: Rashad Lott - Chief Complaint Weakness - History of Present Illness this is a pleasant 89-year-old female who presented to the emergency department with complaints of weakness and passing out on the toilet early this morning. She was brought into the emergency department for further evaluation. She has a past medical history includingheart failure, hyperlipidemia, hypertension and syncope. She also had a bowel resection in the past.patient is not on any anticoagulation other than low-dose aspirin. patient was recently started on meloxicam about 3-4 weeks ago. The family states she had a very large bowel movement early this morning that was black. Patient states she's been having dark stools over the last 3 days at least. She was noted to have a hemoglobin of 6.5 on admission. Elevated BUN at 52. They deny any knowledge of previous anemia, or GI bleed. She has had a remote EGD done for acid reflux which she st ates she was told she had a hiatal hernia. She is denying any abdominal pain, nausea or vomiting.she states that she does have constipation, states that she usually only has one bowel movement a week. Unsure of last colonoscopy. labs WBC 6.0 hemoglobin 6.5 hematocrit 18 platelet count 67,000 sodium 134 potassium 4.1 BUN 52 creatinine 0.98 glucose 169 total bilirubin 0.3 magnesium 1.8 AST 25 ALT 20 alkaline phosphatase 53 lactic acid was 2.2 Review of Systems REVIEW OF SYSTEMS: CARDIOPULMONARY: No chest pain or shortness of breath. Gastrointestinal:denies any epigastric or abdominal pain. No nausea or vomiting. No hematemesis, coffee-ground emesis. No rectal bleeding, or melena. GENITOURINARY: No dysuria or hematuria. MUSCULOSKELETAL: Reports normal range of motion. SKIN: No rashes. No jaundice. ENDOCRINE: No chills, fevers. No excessive weight gain or loss. No polydipsia or polyuria. PSYCHIATRIC: Unremarkable. NEUROLOGY: No change in mental status. Denies dizziness, headache. ENT: Vision unremarkable. CONSTITUTIONAL: Decreased appetite over the last several years, increased weakness. Past Medical History Past Medical History: Heart Failure, Hyperlipidemia, Hypertension, Syncope Additional Past Medical History / Comment(s): overactive bladder History of Any Multi-Drug Resistant Organisms: None Reported Past Surgical History: Appendectomy, Bowel Resection, Section, Orthopedic Surgery, Tonsillectomy Past Psychological History: Depression Smoking Status: Former smoker Past Alcohol Use History: Rare Past Drug Use History: None Reported Medications and Allergies Home Medications Medication Instructions Recorded Confirmed Type Aspirin 81 mg PO DAILY 08/18/14 10/03/22 History Atorvastatin [Lipitor] 20 mg PO HS 08/18/14 10/03/22 History Multivitamins, Thera [Multivitamin 1 tab PO DAILY 08/24/17 10/03/22 History (formulary)] amLODIPine [Norvasc] 10 mg PO DAILY 08/24/17 10/03/22 History Calcium Carbonate [Calcium] 600 mg PO DAILY 10/03/22 10/03/22 History Cholecalciferol (Vitamin D3) 125 mcg PO DAILY 10/03/22 10/03/22 History [Vitamin D3 (125 MCG = 5,000 IU)] Meloxicam [Mobic] 7.5 mg PO BID PRN 10/03/22 10/03/22 History Prevagen 1 tab PO DAILY 10/03/22 10/03/22 History Vit C/E/Zn/Coppr/Lutein/Zeaxan 1 cap PO DAILY 10/03/22 10/03/22 History [Preservision Areds 2 Softgel] Allergies Allergy/AdvReac Type Severity Reaction Status Date / Time No Known Allergies Allergy Verified 10/03/22 09:26 Physical Exam Vitals: Vital Signs Temp Pulse Resp BP Pulse Ox 10/03/22 08:28 97.7 F 78 18 108/57 95 10/03/22 07:06 98 F 78 16 120/65 10/03/22 06:46 98 F 81 16 115/56 97 10/03/22 06:20 97.9 F 74 16 119/54 10/03/22 06:00 81 16 114/58 96 10/03/22 05:00 75 16 116/45 97 10/03/22 04:00 79 16 128/58 95 10/03/22 03:23 98 F 82 16 130/64 98 Intake and Output 10/02/22 10/03/22 10/03/22 22:59 06:59 14:59 Intake Total 0 Balance 0 Intake: Blood Product 0 Unit 0 Other: Weight 59.874 kg General appearance: The patient is alert, oriented, appears in no acute distress. HET: Head is normocephalic and atraumatic. Conjunctiva pink. Sclera anicteric. Neck: Supple without lymphadenopathy. Trachea midline. Heart: S1 S2. Regular rate and rhythm. Lungs: Clear to auscultation. Abdomen: Soft, nontender, nondistended with bowel sounds. No guarding or rigidity. Skin: No rashes. No jaundice. Extremities: Normal skin color and turgor. No pedal edema. Neurological: No focal deficits. Alert and oriented x3. Results CBC & Chem 7: 10/03/22 03:32 10/03/22 03:32 Labs: Abnormal Lab Results - Last 24 Hours (Table) 10/03/22 10/03/22 10/03/22 Range/Units 03:32 03:32 03:32 RBC 2.08 L (3.80-5.40) m/uL Hgb 6.5 L* (11.4-16.0) gm/dL Hct 18.9 L* (34.0-46.0) % Plt Count 67 L (150-450) k/uL Sodium 134 L (137-145) mmol/L Chloride 110 H (98-107) mmol/L Carbon Dioxide 19 L (22-30) mmol/L BUN 52 H (7-17) mg/dL Glucose 169 H (74-99) mg/dL Plasma Lactic Acid Ehsan 2.2 H* (0.7-2.0) mmol/L Calcium 8.2 L (8.4-10.2) mg/dL Total Protein 4.6 L (6.3-8.2) g/dL Albumin 2.7 L (3.5-5.0) g/dL Crossmatch 10/03/22 Range/Units 03:32 RBC (3.80-5.40) m/uL Hgb (11.4-16.0) gm/dL Hct (34.0-46.0) % Plt Count (150-450) k/uL Sodium (137-145) mmol/L Chloride (98-107) mmol/L Carbon Dioxide (22-30) mmol/L BUN (7-17) mg/dL Glucose (74-99) mg/dL Plasma Lactic Acid Ehsan (0.7-2.0) mmol/L Calcium (8.4-10.2) mg/dL Total Protein (6.3-8.2) g/dL Albumin (3.5-5.0) g/dL Crossmatch See Detail Assessment and Plan (1) Melena Narrative/Plan: 89-year-old female with a history of coronary artery disease, hypertension, hyperlipidemia and syncope presented to the emergency department for weakness. Patient also was noted to have a large black stool prior to coming into the emergency department. On admission she was noted to have a hemoglobin of 6.5 with a recent hemoglobin of 14 on 08/09/2022. No previous history of GI bleed or anemia. She does have a remote past bowel resection, unknown last colonoscopy. Deniesany anticoagulation, currently taking low-dose aspirin and was recently started on meloxicam about 3-4 weeks ago her PCP. No abdominal pain nausea or vomiting. Reports having black stools over the last 3 days duration. Unclear etiology at this time. Possible etiologies include peptic ulcer disease, gastritis, esophagitis, AVM or other etiologies. Patient states she had a remote EGD several years ago for acid reflux and stated that she has a hiatal hernia. No repeat since then. Patient does also suffer with cy gorman. She does not report any fresh bright red blood.plan will be to proceed with EGD tomorrow. Avoid NSAIDs or anticoagulation. Current Visit: Yes Status: Acute Code(s): K92.1 - MELENA SNOMED Code(s): 2081970 (2) Anemia Current Visit: Yes Status: Acute Code(s): D64.9 - ANEMIA, UNSPECIFIED SNOMED Code(s): 866354586 Plan: 1. Continue symptomatic and supportive care 2. Patient may have clear liquid diet, nothing by mouth after midnight 3. Avoid NSAIDs 5. Protonix 40 mg twice a day 6. Daily CBC, transfuse for hemoglobin less than 7 7. Anemia workup ordered 8. Plan for EGD tomorrow. Procedure discussed with patient and family at the bedside. Risks and benefits discussed, patient is ageeable to proceed. Thank you for this consultation, we will continue to follow. Dr. Bulmaro Pierre I agree with the dictator's note, documented as a scribe by Jayna Garcia.
--- NOTE | 2022-10-03 14:26 | P.HPIM ---
History of Present Illness 89-year-old female patient came with the complaints of generalized weakness, syncopal episode. Patient is found to be have a extremely low hemoglobin of 6.5 patient will also comparing of dark stools multiple episodes last night. P atient does have history of hemorrhoidal hernia patient does take naproxen at home but not on regular basis for arthritis. REVIEW OF SYSTEMS: CONSTITUTIONAL: No fever, no malaise, no fatigue. HEENT: No recent visual problems or hearing problems. Denied any sore throat. CARDIOVASCULAR: No chest pain, orthopnea, PND, no palpitations, no syncope. PULMONARY: No shortness of breath, no cough, no hemoptysis. GASTROINTESTINAL: As mentioned in HPI NEUROLOGICAL: No headaches, no weakness, no numbness. HEMATOLOGICAL: Denies any bleeding or petechiae. GENITOURINARY: Denies any burning micturition, frequency, or urgency. MUSCULOSKELETAL/RHEUMATOLOGICAL: Denies any joint pain, swelling, or any muscle pain. ENDOCRINE: Denies any polyuria or polydipsia. The rest of the 14-point review of systems is negative. PHYSICAL EXAMINATION: GENERAL: The patient is alert and oriented x3, not in any acute distress. Well developed, well nourished. HEENT: Pupils are round and equally reacting to light. EOMI. No scleral icterus. Patient does have conjunctival pallor. Normocephalic, atraumatic. No pharyngeal erythema. No thyromegaly. CARDIOVASCULAR: S1 and S2 present. No murmurs, rubs, or gallops. PULMONARY: Chest is clear to auscultation, no wheezing or crackles. ABDOMEN: Soft, nontender, nondistended, normoactive bowel sounds. No palpable organomegaly. MUSCULOSKELETAL: No joint swelling or deformity. EXTREMITIES: No cyanosis, clubbing, or pedal edema. NEUROLOGICAL: Gross neurological examination did not reveal any focal deficits. SKIN: No rashes. Assessment and plan -Syncope: Secondary to acute upper GI bleed -Acute blood loss anemia from acute upper GI bleed from peptic ulcer disease secondary to hiatal hernia and naproxen naproxen is being held patient is on IV Protonix gastroneurology evaluated the patient patient will undergo upper GI endoscopy tomorrow -Hypervolemic hyponatremia -Hyperchloremia secondary to normal saline, will be switched to lactated Ringer's -Non-anion gap metabolic acidosis secondary to hyperchloremia DVT prophylaxis: Early ambulation Past Medical History Past Medical History: Heart Failure, Hyperlipidemia, Hypertension, Syncope Additional Past Medical History / Comment(s): overactive bladder History of Any Multi-Drug Resistant Organisms: None Reported Past Surgical History: Appendectomy, Bowel Resection, Section, Orthopedic Surgery, Tonsillectomy Past Psychological History: Depression Smoking Status: Former smoker Past Alcohol Use History: Rare Past Drug Use History: None Reported Medications and Allergies Home Medications Medication Instructions Recorded Confirmed Type Aspirin 81 mg PO DAILY 08/18/14 10/03/22 History Atorvastatin [Lipitor] 20 mg PO HS 08/18/14 10/03/22 History Multivitamins, Thera [Multivitamin 1 tab PO DAILY 08/24/17 10/03/22 History (formulary)] amLODIPine [Norvasc] 10 mg PO DAILY 08/24/17 10/03/22 History Calcium Carbonate [Calcium] 600 mg PO DAILY 10/03/22 10/03/22 History Cholecalciferol (Vitamin D3) 125 mcg PO DAILY 10/03/22 10/03/22 History [Vitamin D3 (125 MCG = 5,000 IU)] Meloxicam [Mobic] 7.5 mg PO BID PRN 10/03/22 10/03/22 History Prevagen 1 tab PO DAILY 10/03/22 10/03/22 History Vit C/E/Zn/Coppr/Lutein/Zeaxan 1 cap PO DAILY 10/03/22 10/03/22 History [Preservision Areds 2 Softgel] Allergies Allergy/AdvReac Type Severity Reaction Status Date / Time No Known Allergies Allergy Verified 10/03/22 09:26 Physical Exam Vitals: Vital Signs Temp Pulse Resp BP Pulse Ox 10/03/22 10:54 97.7 F 79 16 128/56 96 10/03/22 10:29 98.0 F 78 16 125/68 97 10/03/22 10:10 98.0 F 81 16 135/53 99 10/03/22 10:09 98.0 F 81 16 135/53 99 10/03/22 09:55 97.8 F 81 16 118/56 95 10/03/22 08:28 97.7 F 78 18 108/57 95 10/03/22 07:06 98 F 78 16 120/65 10/03/22 06:46 98 F 81 16 115/56 97 10/03/22 06:20 97.9 F 74 16 119/54 10/03/22 06:00 81 16 114/58 96 10/03/22 05:00 75 16 116/45 97 10/03/22 04:00 79 16 128/58 95 10/03/22 03:23 98 F 82 16 130/64 98 Intake and Output 10/02/22 10/03/22 10/03/22 22:59 06:59 14:59 Intake Total 0 589 Balance 0 589 Intake: Blood Product 0 589 Rc As-1 Unit 0 310 [id number] Rc Pheresis 2 As3 Unit 279 [id number] Other: Weight 59.874 kg Results CBC & Chem 7: 10/03/22 03:32 10/03/22 03:32 Labs: Abnormal Lab Results - Last 24 Hours (Table) 10/03/22 10/03/22 10/03/22 Range/Units 03:32 03:32 03:32 RBC 2.08 L (3.80-5.40) m/uL Hgb 6.5 L* (11.4-16.0) gm/dL Hct 18.9 L* (34.0-46.0) % Plt Count 67 L (150-450) k/uL Sodium 134 L (137-145) mmol/L Chloride 110 H (98-107) mmol/L Carbon Dioxide 19 L (22-30) mmol/L BUN 52 H (7-17) mg/dL Glucose 169 H (74-99) mg/dL Plasma Lactic Acid Ehsan 2.2 H* (0.7-2.0) mmol/L Calcium 8.2 L (8.4-10.2) mg/dL Total Protein 4.6 L (6.3-8.2) g/dL Albumin 2.7 L (3.5-5.0) g/dL Crossmatch 10/03/22 Range/Units 03:32 RBC (3.80-5.40) m/uL Hgb (11.4-16.0) gm/dL Hct (34.0-46.0) % Plt Count (150-450) k/uL Sodium (137-145) mmol/L Chloride (98-107) mmol/L Carbon Dioxide (22-30) mmol/L BUN (7-17) mg/dL Glucose (74-99) mg/dL Plasma Lactic Acid Ehsan (0.7-2.0) mmol/L Calcium (8.4-10.2) mg/dL Total Protein (6.3-8.2) g/dL Albumin (3.5-5.0) g/dL Crossmatch See Detail
[2022-10-03 15:02] LABS: Basophils % (A) 0 %; Eosinophils % (A) 0 %; HGB 10.1 gm/dL (11.4-16.0); Lymphocytes # (A) 0.9 k/uL (1.0-4.8); Lymphocytes % (A) 12 %; MCH 31.6 pg (25.0-35.0); MCHC 34.9 g/dL (31.0-37.0); MCV 90.7 fL (80.0-100.0); Mean Platelet Volume 8.8; Monocytes # (A) 0.3 k/uL (0-1.0); Monocytes % (A) 4 %; Neutrophils # (A) 6.2 k/uL (1.3-7.7); Neutrophils % (A) 82 %; Platelet Count 148 k/uL (150-450); WBC 7.5 k/uL (3.8-10.6)
[2022-10-03 15:20] LABS: Albumin 3.3 g/dL (3.5-5.0); Calcium 8.4 mg/dL (8.4-10.2); Potassium 4.1 mmol/L (3.5-5.1); Total Bilirubin 1.3 mg/dL (0.2-1.3); Total Protein 5.5 g/dL (6.3-8.2)
[2022-10-03 16:15] LABS: Prothrombin Time 10.5 sec (9.0-12.0)
[2022-10-03 16:26] LABS: Partial Thromboplastin Time 19.9 sec (22.0-30.0)
[2022-10-03 19:08] LABS: % Iron Saturation 71.76 (12.00-45.00); Ferritin 42.8 ng/mL (10.0-291.0)
[2022-10-03] MEDS: ATORVASTATIN 20 MG TAB PO SCH (20:48)
[2022-10-04] MEDS: LACTATED RINGERS 1,000 ML IV SCH ×2 (04:48→17:30)
[2022-10-04] MEDS: PANTOPRAZOLE 40 MG/10 ML VIAL IV SCH ×2 (09:11→20:33)
[2022-10-04 09:31] LABS: HCT 28.6 % (34.0-46.0); HGB 9.9 gm/dL (11.4-16.0); MCH 31.8 pg (25.0-35.0); MCHC 34.5 g/dL (31.0-37.0); MCV 92.1 fL (80.0-100.0); Platelet Count 161 k/uL (150-450); RBC 3.11 m/uL (3.80-5.40); RDW 13.7 % (11.5-15.5); WBC 5.2 k/uL (3.8-10.6)
[2022-10-04] MEDS: polyethylene glycoL 3350 17 GM POWD.PACK PO SCH (09:46)
[2022-10-04] MEDS ORDERED: LIDOCAINE 2% INJ 20 MG/ML (2 ML VIAL) ONE (13:51)
[2022-10-04] MEDS ORDERED: PROPOFOL 10 MG/ML 20 ML VIAL IV ONE (13:51)
[2022-10-04] MEDS ORDERED: IV FLUID CONTINUATION 1,000 ML IV ONE (13:53)
--- NOTE | 2022-10-04 14:08 | P.PCN ---
Date of Procedure: 10/04/22 Procedure(s) Performed: BRIEF HISTORY: Patient is a 89-year-old, pleasant, white female admitted hospital with black tarry stools for the last 2 days' duration. Hemoglobin was 6.6 g/dL and received 2 units of PRBC transfusion and repeat hemoglobin was 9.5 g/dL. She is scheduled for an upper endoscopy for clinical suspicion for upper GI source of bleeding. She has been on Motrin for arthritis for the last. PROCEDURE PERFORMED: Esophagogastroduodenoscopy With Endo Clip placement PREOPERATIVE DIAGNOSIS: Anemia and black tarry stools of 2 days' duration. IV sedation per anesthesia. PROCEDURE: After informed consent was obtained, the patient was brought into the endoscopy unit. IV sedation was administered by Anesthesia under continuous monitoring. Initially the Olympus GIF-140 video endoscope was inserted into the mouth. Esophagus intubated without any difficulty. It was gradually advanced into the stomach and duodenum and carefully examined. The bulb and the second part of the duodenum appeared normal. The scope at this time was withdrawn to the stomach, adequately insufflated with air, and upon careful examination, mucosa of the antrum appeared normal. In the proximal antrum of the stomach there was a 1 cm superficial ulceration with a small visible vessel but no active bleeding and 2 endoclips were placed and good hemostasis was achieved. Rest of the , body, cardia and the fundus appeared normal. The scope was then withdrawn into the esophagus. The GE junction was located at 39 cm from the incisors. The esophagus appeared normal. on a size hiatal hernia noted. There were no erosions or ulcerations seen and the patient tolerated the procedure well. IMPRESSION: 1. Small superficial proximal antral ulcer with a small visible vessel but no active bleeding status post Endo Clip placement as described above 2. Moderate size hiatal hernia RECOMMENDATIONS: The findings of this examination were discussed with the patient as well as a family. She'll continue with Protonix 40 mg daily. Monitor CBC daily. Advance diet as tolerated..
--- NOTE | 2022-10-04 15:09 | P.PN ---
Subjective Progress Note Date: 10/04/22 89-year-old female patient came with the complaints of generalized weakness, syncopal episode. Patient is found to be have a extremely low hemoglobin of 6.5 patient will also comparing of dark stools multiple episodes last night. 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 10/04/2022 Patient is seen and evaluated in follow-up early nothing by mouth as patient is scheduled for EGD this morning with GI following. Hemoglobin is 9.9 today and reports no active bleeding noted. Patient denies dark stools today. Patient is afebrile denies chest pain or shortness of breath. Patient denies any nausea or vomiting and tolerating diet. Patient is continued on IV Protonix along with as needed Zofran. Will await EGD report. Review of systems: Constitutional: No reports of fatigue, fever, or chills Cardiovascular: No reports of chest pain or palpitations Respiratory: No reports of shortness of breath or cough GI: No reports of nausea, vomiting, or diarrhea : No reports of dysuria or retention Neurovascular: No reports of weakness or numbness All medications have been reviewed PHYSICAL EXAMINATION: GENERAL: The patient is alert and oriented x3, not in any acute distress. Well developed, well nourished. HEENT: Pupils are round and equally reacting to light. EOMI. No scleral icterus. Patient does have conjunctival pallor. Normocephalic, atraumatic. No pharyngeal erythema. No thyromegaly. CARDIOVASCULAR: S1 and S2 present. No murmurs, rubs, or gallops. PULMONARY: Chest is clear to auscultation, no wheezing or crackles. ABDOMEN: Soft, nontender, nondistended, normoactive bowel sounds. No palpable organomegaly. MUSCULOSKELETAL: No joint swelling or deformity. EXTREMITIES: No cyanosis, clubbing, or pedal edema. NEUROLOGICAL: Gross neurological examination did not reveal any focal deficits. SKIN: No rashes. Assessment: -Syncope: Secondary to acute upper GI bleed -Acute blood loss anemia from acute upper GI bleed from peptic ulcer disease secondary to hiatal hernia and naproxen. -Small superficial proximal antral ulcer status post endoclips 2 on EGD with a moderate size hiatal hernia -Hypervolemic hyponatremia -Hyperchloremia secondary to normal saline, recommend continue with lactated Ringer's -Non-anion gap metabolic acidosis secondary to hyperchloremia -DVT prophylaxis: Early ambulation -No code Plan: Patient is currently nothing by mouth with GI following plan for EGD which showed a small superficial proximal antral ulcer with small visible vessel but no active bleeding status post Endo Clip placement 2 with a moderate size hiatal hernia GI recommending monitoring overnight and will follow-up with repeat labs including CBC and BMP Patient okay to resume diet and advance slowly as tolerated continue with anti- nausea medication as needed Patient will be continued on Protonix daily and will follow-up with the patient in the a.m. Patient had been taking naproxen and will continue to hold Possible discharge in the next 24 hours The impression and plan of care has been dictated by Cari Chirinos, Nurse Practitioner as directed. Dr. Viki MD I have performed a history and examination and MDM of this patient, discussed the same with the dictator, and agree with the dictator's assessment and plan as written ,documented as a scribe. Based on total visit time, I have performed more than 50% of the visit. Objective - Vital Signs Vital signs: Vital Signs Temp 98.3 F 10/04/22 07:56 Pulse 71 10/04/22 07:56 Resp 16 10/04/22 09:30 BP 120/73 10/04/22 07:56 Pulse Ox 100 10/04/22 09:06 FiO2 Intake & Output 10/03/22 10/04/22 10/04/22 18:59 06:59 18:59 Intake Total 589 20 Balance 589 20 Weight 59.874 kg Intake: IV 20 Invasive Line 1 10 Invasive Line 2 10 Blood Product 589 Rc As-1 Unit 310 [id number] Rc Pheresis 2 As3 Unit 279 [id number] Other: Voiding Method Toilet Toilet # Voids 1 - Labs CBC & Chem 7: 10/04/22 09:02 10/03/22 14:35 Labs: Abnormal Lab Results - Last 24 Hours (Table) 10/03/22 10/03/22 10/03/22 Range/Units 03:32 14:35 14:35 RBC 3.20 L (3.80-5.40) m/uL Hgb 10.1 L D (11.4-16.0) gm/dL Hct 29.0 L (34.0-46.0) % Plt Count 148 L D (150-450) k/uL Lymphocytes # 0.9 L (1.0-4.8) k/uL APTT (22.0-30.0) sec Chloride 111 H (98-107) mmol/L BUN 35 H (7-17) mg/dL Glucose 110 H (74-99) mg/dL Iron (50-170) ug/dL % Saturation (12.00-45.00) Total Protein 5.5 L (6.3-8.2) g/dL Albumin 3.3 L (3.5-5.0) g/dL Crossmatch See Detail 10/03/22 10/03/22 10/04/22 Range/Units 14:35 15:25 09:02 RBC 3.11 L (3.80-5.40) m/uL Hgb 9.9 L (11.4-16.0) gm/dL Hct 28.6 L (34.0-46.0) % Plt Count (150-450) k/uL Lymphocytes # (1.0-4.8) k/uL APTT 19.9 L (22.0-30.0) sec Chloride (98-107) mmol/L BUN (7-17) mg/dL Glucose (74-99) mg/dL Iron 216 H (50-170) ug/dL % Saturation 71.76 H (12.00-45.00) Total Protein (6.3-8.2) g/dL Albumin (3.5-5.0) g/dL Crossmatch
[2022-10-04] MEDS: ATORVASTATIN 20 MG TAB PO SCH (20:33)
[2022-10-05 08:30] LABS: HCT 27.8 % (34.0-46.0); HGB 9.6 gm/dL (11.4-16.0); MCH 31.9 pg (25.0-35.0); MCHC 34.5 g/dL (31.0-37.0); MCV 92.5 fL (80.0-100.0); Mean Platelet Volume 8.6; Platelet Count 169 k/uL (150-450); RBC 3.01 m/uL (3.80-5.40); RDW 13.8 % (11.5-15.5); WBC 5.1 k/uL (3.8-10.6)
[2022-10-05] MEDS: PANTOPRAZOLE 40 MG/10 ML VIAL IV SCH (09:40)
[2022-10-05 09:51] VITALS: BP 134/63; PULSE 67; RESP 16; TEMP 97.8
--- NOTE | 2022-10-05 11:57 | P.PN ---
Subjective Progress Note Date: 10/05/22 Principal diagnosis: melena, GI bleed This is a pleasant 89-year-old female who presented to the emergency department with complaints of weakness and passing out on the toilet early this morning. She was brought into the emergency department for further evaluation. She has a past medical history includingheart failure, hyperlipidemia, hypertension and syncope. She also had a bowel resection in the past.patient is not on any anticoagulation other than low-dose aspirin. patient was recently started on meloxicam about 3-4 weeks ago. The family states she had a very large bowel movement early this morning that was black. Patient states she's been having dark stools over the last 3 days at least. She was noted to have a hemoglobin of 6.5 on admission. Elevated BUN at 52. They deny any knowledge of previous anemia, or GI bleed. She has had a remote EGD done for acid reflux which she states she was told she had a hiatal hernia. She is denying any abdominal pain, nausea or vomiting.she states that she does have constipation, states that she usually only has one bowel movement a week. Unsure of last colonoscopy. 10/05/2022:patient is seen and examined today as a follow-up for GI bleed. Yesterday she underwentEGD with findings of small superficial proximal antral ulcer with small vessel no active bleeding with Endo Clip placement. Also moderate sized hiatal hernia. Patient states she had a bowel movement today was still dark, no abdominal pain, nausea or vomiting. She's been tolerating full liquid diet. Hemoglobin stable at 9.6. Objective - Vital Signs Vital signs: Vital Signs Temp 97.8 F 10/05/22 08:00 Pulse 67 10/05/22 08:00 Resp 16 10/05/22 08:00 BP 134/63 10/05/22 08:00 Pulse Ox 98 10/05/22 08:00 FiO2 Intake & Output 10/04/22 10/05/22 10/05/22 18:59 06:59 18:59 Intake Total 360 240 Balance 360 240 Intake: Oral 360 240 Other: Voiding Method Toilet Toilet # Voids 2 2 # Bowel Movements 1 - Exam General appearance: The patient is alert, oriented, appears in no acute distress. HET: Head is normocephalic and atraumatic. Conjunctiva pink. Sclera anicteric. Neck: Supple without lymphadenopathy. Abdomen: Soft, nontender, nondistended with bowel sounds. No guarding or rigidity. Extremities: Normal skin color and turgor. No pedal edema Skin: No rashes, no jaundice Neurological: No focal deficits. Alert and oriented. - Labs CBC & Chem 7: 10/05/22 07:31 10/03/22 14:35 Labs: Abnormal Lab Results - Last 24 Hours (Table) 10/05/22 Range/Units 07:31 RBC 3.01 L (3.80-5.40) m/uL Hgb 9.6 L (11.4-16.0) gm/dL Hct 27.8 L (34.0-46.0) % Assessment and Plan (1) Melena Narrative/Plan: 89-year-old female with a history of coronary artery disease, hypertension, hyperlipidemia and syncope presented to the emergency department for weakness. Patient also was noted to have a large black stool prior to coming into the emergency department. On admission she was noted to have a hemoglobin of 6.5 with a recent hemoglobin of 14 on 08/09/2022. No previous history of GI bleed or anemia. She does have a remote past bowel resection, unknown last colonoscopy. Deniesany anticoagulation, currently taking low-dose aspirin and was recently started on meloxicam about 3-4 weeks ago her PCP. No abdominal pain nausea or vomiting. Reports having black stools over the last 3 days duration. Unclear etiology at this time. Possible etiologies include peptic ulcer disease, gastritis, esophagitis, AVM or other etiologies. Patient states she had a remote EGD several years ago for acid reflux and stated that she has a hiatal hernia. No repeat since then. Patient does also suffer with constipation. She does not report any fresh bright red blood.plan will be to proceed with EGD tomorrow. Avoid NSAIDs or anticoagulation. patient status post EGD with small antral ulcer with vessel noted, no active bleeding status post Endo Clip placement. Current Visit: Yes Status: Acute Code(s): K92.1 - MELENA SNOMED Code(s): 0678168 (2) Anemia Current Visit: Yes Status: Acute Code(s): D64.9 - ANEMIA, UNSPECIFIED SNOMED Code(s): 586696241 Plan: 1. Continue symptomatic and supportive care 2. Patient may have clear liquid diet, nothing by mouth after midnight 3. Avoid NSAIDs, discussed with patient and daughter to discontinue meloxicam. 5. Protonix 40 mg 6. Patient is status post EGD with findings of a small antral ulcer with a vessel noted and Endo Clip placement 7. Patient is cleared from gastroenterology for discharge. We will sign off at this time. Dr. Bulmaro Pierre I agree with the dictator's note, documented as a scribe by Jayna Garcia.
[2022-10-05] MEDS: polyethylene glycoL 3350 17 GM POWD.PACK PO SCH (12:39)
[2022-10-05] MEDS: LACTATED RINGERS 1,000 ML IV SCH (12:39)
== END 2022-10-05 13:09 | disposition home or self-care (01) | DRG 378 ==
LOC: EC 03:21 → 3SCARD 05:45
PROVIDERS: ADMIT Hospitalist; ATTEND Hospitalist
PROC: 0W3P8ZZ Control Bleeding in Gastrointestinal Tract, Via Natural or Artificial Opening Endoscopic (ICD-10-PCS; principal; 2022-10-04 12:40)
DX: K25.4 Chronic or unspecified gastric ulcer with hemorrhage (principal); D62 Acute posthemorrhagic anemia; E87.1 Hypo-osmolality and hyponatremia; E87.20 Acidosis, unspecified; E86.0 Dehydration; E78.5 Hyperlipidemia, unspecified; E87.8 Other disorders of electrolyte and fluid balance, not elsewhere classified; R55 Syncope and collapse; F32.A Depression, unspecified; I11.0 Hypertensive heart disease with heart failure; I50.9 Heart failure, unspecified; I25.10 Atherosclerotic heart disease of native coronary artery without angina pectoris; K44.9 Diaphragmatic hernia without obstruction or gangrene; N32.81 Overactive bladder; Z79.1 Long term (current) use of non-steroidal anti-inflammatories (NSAID); Z79.82 Long term (current) use of aspirin; Z79.899 Other long term (current) drug therapy; Z87.891 Personal history of nicotine dependence; Z87.19 Personal history of other diseases of the digestive system
CPT/HCPCS: 36415; 43255; 80053; 81003; 82607; 82728; 82746; 83540; 83550; 83605; 83735; 84100; 84443; 84484; 85025; 85027; 85610; 85730; 86850; 86900; 86901; 86920; 93005; 94760; 96374; 96375; 96376; 99291